=== PATIENT | female | born 1985 | race Hispanic/Latino ===

== ENCOUNTER 2019-10-30 09:45 | Outpatient (CLI) | payer OTHER ==
--- NOTE | 2019-10-30 11:53 | ULT ---
COMPLETE ULTRASOUND GREATER THAN 14 WEEKS: HISTORY: Third trimester ultrasound evaluation, anatomy. FINDINGS: Single viable intrauterine fetus is noted in vertex presentation. Placenta is anterior. Cervical le ngth 2.8 cm. heart rate 134 b.p.m. Amniotic fluid is within normal limits. Anatomy: Visualized brain, 4-chamber heart, 3-vessel cord, stomach, bladder, kidneys, spine, and extremi ty regions were unremarkable. Biometry: BPD 8.5 cm-34 weeks 1 day Head circumference 32.5 cm-36 weeks 6 days Abdominal circumference 28.1 cm-32 weeks 1 day Femur length 6.3 cm-32 weeks 4 days IMPRESSION: Gestational age average 34 weeks 0 days. Estimated date of delivery 12/11/2019. Estimated weigh t 2066 gm. There is an approximately 4 week discrepancy between the head circumference and the abdominal circumf erence raising concern for the possibility of intrauterine growth restriction (IUGR). Consider short -term followup. CODE T
== END 2019-10-30 09:46 | disposition home or self-care (01) ==
LOC: BICULT 09:45
PROVIDERS: ATTEND Family Medicine
DX: O09.893 Supervision of other high risk pregnancies, third trimester (principal); Z3A.34 34 weeks gestation of pregnancy
CPT/HCPCS: 76805

== ENCOUNTER 2019-11-17 09:43 | Outpatient (CLI) | payer MEDICAID ==
--- NOTE | 2019-11-17 10:35 | ULT ---
EXAM: OB ultrasound COMPARISON: 10/30/2019. HISTORY: Follow-up evaluation. Concern for IUGR. TECHNIQUE: Multiplanar grayscale and color Doppler transabdominal sonographic images are obtained. FINDINGS: There is a single intrauterine gestation in cephalic presentation. Cardiac Doppler demonstr ates heart tones with a heart rate of 155 beats per minute. The placenta is located anteriorly without evidence of placenta previa. Amniotic fluid index is diminished measuring 7.37 cm The cervix is obscured due to shadowing. biometry measurements: BPD 9.44 cm -- 38 weeks 4 days HC 33.52 cm -- 38 weeks 3 days AC 31.7 cm -- 35 weeks 5 days FL 6.87 cm -- 35 weeks 2 days The estimated gestational age by ultrasound is 37 weeks with an JORDY on12/08/2019. Gestational age by t he last menstrual period is 36 weeks 4 days. The estimated weight by ultrasound is 2854 g (6 pounds, 5 ounces). This represents 41 percentil e for weight. There has been mild interval growth compared to prior exam. This exam was not performed for evaluation of the anatomical structures, no definite anom alies are appreciated on the provided images. IMPRESSION: 1. Single intrauterine gestation in cephalic presentation with heart tones documented. Estimat ed gestational age by ultrasound is 37 weeks. 2. Estimated weight is 2854 g (6 pounds, 5 ounces). 3. Amniotic fluid index is diminished at 7.37 cm. 4. Again noted is a discrepancy in the head circumference compared to the abdominal circumference wit h three-week discrepancy present. A four-week discrepancy was noted on the prior exam.
== END 2019-11-17 09:44 | disposition home or self-care (01) ==
LOC: BICULT 09:43
PROVIDERS: ATTEND Family Medicine
DX: O09.893 Supervision of other high risk pregnancies, third trimester (principal); Z3A.37 37 weeks gestation of pregnancy
CPT/HCPCS: 76805

== ENCOUNTER 2019-11-27 09:03 | Outpatient (CLI) | payer MEDICAID ==
--- NOTE | 2019-11-27 11:03 | ULT ---
FOLLOWUP OB ULTRASOUND WITH DOPPLER: COMPARISON: 11/17/2019. FINDINGS: A single live intrauterine gestation seen with measurements corresponding to an estimated gestational age of 38 weeks 2 days and JORDY at 12/09/2019. The estimated weight measures 3137 gm or 6 pound s 15 ounces (40% by Hadlock criteria. measurements are as follows: BPD 9.59 cm, 39 weeks 2 days HC 34.22 cm, 39 weeks 4 days AC 32.04 cm, 33 weeks 0 days FL 7.39 cm, 37 weeks 6 days heart rate measures 152 b.p.m. YAZMIN measures 9.2 cm. Placenta is anteriorly located without ev idence of placenta previa. Cervical length measures 4.4 cm. The peak systolic velocity in the umbil ical artery measures 89.5 cm/s with an end-diastolic velocity of 40.5 cm/s. The resistive indices me asure 0.61. The placenta, 0.55 in the mid portion, and 0.58 at the end. IMPRESSION: Single live intrauterine of 38 weeks 2 days estimated gestational age and estimated date of delivery at 12/09/2019. POS: [facility]
== END 2019-11-27 09:04 | disposition home or self-care (01) ==
LOC: BICULT 09:03
PROVIDERS: ATTEND Family Medicine
DX: O36.5993 Maternal care for other known or suspected poor fetal growth, unspecified trimester, fetus 3 (principal); Z3A.38 38 weeks gestation of pregnancy
CPT/HCPCS: 76816

== ENCOUNTER 2020-11-05 09:05 | Emergency (ER) | payer OTHER, SELFPAY ==
[2020-11-05] MEDS ORDERED: Lidocaine 1% w/Epinephrine 1:100K 20 ML VIAL ONE ×2 (10:19→10:21)
[2020-11-05] MEDS ORDERED: Boostrix 0.5 ML (Tdap) VIAL ONE (10:19)
[2020-11-05] MEDS ORDERED: Bacitracin 1 PK ONE (12:07)
== END 2020-11-05 12:22 | disposition home or self-care (01) ==
LOC: ERS 09:05
DX: S81.832A Puncture wound without foreign body, left lower leg, initial encounter (principal); S71.132A Puncture wound without foreign body, left thigh, initial encounter; W54.0XXA Bitten by dog, initial encounter
CPT/HCPCS: 12001; 90715

== ENCOUNTER 2021-09-02 13:36 | Outpatient (CLI) | payer OTHER | END 2021-09-02 13:37 | disposition home or self-care (01) | LOC: BICULT 13:36 | PROVIDERS: ATTEND Family Medicine | DX: O09.522 Supervision of elderly multigravida, second trimester (principal); Z3A.21 21 weeks gestation of pregnancy | CPT/HCPCS: 76805 ==